=== PATIENT | female | born 1965 | race African-American/Black ===

== ENCOUNTER 2019-03-16 12:04 | Emergency (ER) | payer MEDICAID ==
[~2019-03-16] VITALS: Ht 170.2 cm; Wt 90.0 kg
[2019-03-16 18:41] VITALS: BP 125/73
== END 2019-03-16 19:17 | disposition left against medical advice (07) ==
LOC: ER 12:04
DX: R10.9 Unspecified abdominal pain (principal); Z53.21 Procedure and treatment not carried out due to patient leaving prior to being seen by health care provider